=== PATIENT | female | born 1930 | race Caucasian/White ===

== ENCOUNTER 2019-01-24 11:07 | Emergency (ER) | payer OTHER ==
[2019-01-24 11:18] VITALS: BP 177/84; TEMP 98.6; BMI 26.9
--- NOTE | 2019-01-24 12:03 | ED.PDOC ---
General ED Provider: Dr. KARMA CALLAHAN Chief Complaint: Head Laceration Stated Complaint: Head hit a small aircraft propeller - laceration right ocipital Time Seen by Physician: 11:40 Mode of Arrival: Walk-In Information Source: Patient Primary Care Provider: BROOKLYNN WHATLEY Nursing and Triage Documentation Reviewed and Agree: Yes Does patient meet sepsis criteria?: No System Inflammatory Response Syndrome: Not Applicable Sepsis Protocol: For patient's 13 years and over: Temp is 96.8 and below OR 101 and greater Pulse >90 BPM Resp >20/minute Acutely Altered Mental Status Are patient's symptoms suggestive of a new infection, such as: -Pneumonia -Skin, Soft Tissue -Endocarditis -UTI -Bone, Joint Infection -Implantable Device -Acute Abdominal Infection -Wound Infection -Meningitis -Blood Stream Catheter Infection -Unknown Review of Systems - Review Of Systems Constitutional: Reports: No symptoms Eyes: Reports: No symptoms Ears, Nose, Mouth, Throat: Reports: No symptoms Respiratory: Reports: No symptoms All Other Systems: Reviewed and Negative Past Medical History - Past Medical History Previously Healthy: Yes Endocrine: Reports: None Cardiovascular: Reports: None Respiratory: Reports: None Hematological: Reports: None Gastrointestinal: Reports: None Genitourinary: Reports: None Neuro/Psych: Reports: None Musculoskeletal: Reports: None Cancer: Reports: None Last Menstrual Period: unknown - Surgical History General Surgical History: Reports: Unknown - Family History Family History: Reports: Unknown - Social History Smoking Status: Never smoker Hx Substance Use: No Alcohol Screening: None - Immunizations Tetanus Shot up to Date: No (Unknown but <5 yrs) Physical Exam - Physical Exam Appearance: Well-appearing Ill-appearing: None Pain Distress: None Eyes: HUEY, EOMI ENT: Ears normal, Nose normal, Oropharynx normal Neck: Supple Respiratory: Airway patent, Breath sounds clear Cardiovascular: RRR, Pulses normal Skin: Warm, Dry, Normal color Neurological: Sensation intact, Motor intact, Alert, Oriented Psychiatric: Affect appropriate, Mood appropriate Procedures - Laceration/Wound Repair No standard instances Wound Description: Linear Wound Length (cm): 3 cm Wound Width: 1 mm Wound Depth: 1 mm Wound Explored: Clean Wound Irrigated: Yes Wound Prep: Hibiclens Critical Care Note - Critical Care Note Total Time (mins): 15 Course - Course Orders, Labs, Meds: Orders Category Date Time Status Diphth,Pertuss(Acell),Tet Vac [Boostrix] MEDS 01/24/19 12:01 Discontinued 0.5 ml IM .ONCE ONE Medications Discontinued Medications Generic Name Dose Route Start Last Admin Trade Name Luke PRN Reason Stop Dose Admin Diphtheria/Pertussis/Tetanus Vacc 0.5 ml 01/24/19 12:01 01/24/19 12:10 Boostrix IM 01/24/19 12:02 0.5 ml .ONCE ONE Administration Vital Signs: Temp Pulse Resp BP Pulse Ox 01/24/19 11:09 98.6 F 81 20 177/84 H 97 Departure - Departure Time of Disposition: 12:39 Disposition: HOME SELF-CARE Discharge Problem: Laceration of head Qualifiers: Encounter type: initial encounter Location of open wound of head: scalp Foreign body presence: without foreign body Qualified Code(s): S01.01XA - Laceration without foreign body of scalp, initial encounter Instructions: Laceration (ED), Skin Adhesive Care (ED) Condition: Good Pt referred to PMD for follow-up: Yes (Nollow up - call for appointment) IPMP verified?: No Additional Instructions: Do not wash hair/scalp until Monday; watch for signs of infection. Allergies/Adverse Reactions: Allergies codeine Adverse Reaction (Verified 01/24/19 12:37) diazepam [From Valium] Adverse Reaction (Verified 01/24/19 11:19) erythromycin base Adverse Reaction (Verified 01/24/19 12:37) proparacaine Adverse Reaction (Verified 01/24/19 12:37) Home Medications: Ambulatory Orders Amlodipine Besylate 5 mg PO DAILY 01/24/19 Glipizide 5 mg PO BID 01/24/19 Levothyroxine Sodium 25 mcg PO DAILY 01/24/19 Omeprazole 20 mg PO DAILY 01/24/19 Pravastatin Sodium [Pravachol] 10 mg PO DAILY 01/24/19 Disposition Discussed With: Patient
[2019-01-24] MEDS: BOOSTRIX IM ONE (12:10)
== END 2019-01-24 12:57 | disposition home or self-care (01) ==
LOC: ED 11:07
DX: S01.01XA Laceration without foreign body of scalp, initial encounter (principal); W22.8XXA Striking against or struck by other objects, initial encounter
CPT/HCPCS: 90471; 90715; 99283